=== PATIENT | male | born 1930 | race Caucasian/White ===

== ENCOUNTER 2016-10-29 09:41 | Emergency (ER) | payer MEDICARE ==
[~2016-10-29 09:41] MED LIST: 8 HOUR650 MG PO; ACIPHEX PO; ASAB PO; ASPERCREME TOP; ASPERCREME W/LIDOCAI TOP; C25 PO; CELEBREX2 PO; COREG3 PO; DIGITEK0.25 MG PO; EFFEX75 PO; FLOMAX4 PO; GENTEAL OPH; GLUCOPHAGE1000 MG PO; GLUCXL2.5 PO; KLONO1 PO; KLONOPIN WAF1 MG PO; KLOR-CON M2020 MEQ PO; L40 PO; LAMICTAL10 PO; LAN25 PO; MAXIMUM D3 PO; NEUR800 PO; PACERONE200 MG PO; PRAVACHOL40 MG PO; PRILO PO; PRIN20 PO; PRIN5 PO; ULTRAM50 PO; VITAMIN D OTC PO; VITAMINS/SUPPLEMENTS; XARELTO20 MG PO
[2016-10-29 11:03] LABS: BASOPHILS 0.4 %; BASOPHILS ABSOLUTE 0.02 10/3/uL (0.0-0.16); EOSINOPHILS 2.3 %; EOSINOPHILS ABSOLUTE 0.13 10/3/uL (0.0-0.53); HEMATOCRIT 42.3 % (40.0-51.0); HEMOGLOBIN 14.5 g/dL (13.6-17.8); IMMATURE GRANULOCYTES 0.2 %; IMMATURE GRANULOCYTES ABSOLUTE 0.01 10/3/uL (0.0-0.11); LYMPHOCYTES 13.6 %; LYMPHOCYTES ABSOLUTE 0.76 10/3/uL (0.67-4.30); MANUAL DIFF NO %; MEAN CORPUS HGB CONC 34.3 g/dL (32.0-36.0); MEAN CORPUSCULAR VOLUME 102.2 fL (80-100); MEAN PLATELET VOLUME 9.2 fL (9.2-13.0); MONOCYTES 9.7 %; MONOCYTES ABSOLUTE 0.54 10/3/uL (0.21-1.20); NEUTROPHILS 73.8 %; NEUTROPHILS ABSOLUTE 4.12 10/3/uL (2.02-8.40); PLATELET COUNT 208 10/3/uL (150-400); RBC DISTRIBUTION WIDTH 13.6 % (12.0-16.0); RED CELL COUNT 4.14 10/6/uL (4.7-6.1); WHITE BLOOD CELLS 5.6 10/3/uL (4.5-10.5)
[2016-10-29 11:10] LABS: INTERNATIONAL NORMAL RATI 1.8 UNITS (-); PARTIAL THROMBO TIME 38.8 SEC (22.5-37.2)
[2016-10-29 11:12] LABS: PROTIME (NOT ORD) 21.1 SEC (12.0-14.5)
[2016-10-29 11:19] LABS: BUN (BLOOD UREA NITROGEN) 23 MG/DL (6-23); CALCIUM, SERUM 8.9 MG/DL (8.5-10.4); CHEST PAIN PROFILE TAT 0 Hrs 20 Mins; CHLORIDE, SERUM 104 MMOL/L (96-112); CO2 (CARBON DIOXIDE) 29 MMOL/L (24-34); CREATININE 1.09 MG/DL (0.70-1.30); GFR AFRICAN AMERICAN 72 ML/MIN (>=60); GFR NON AFRICAN AMERICAN 62 ML/MIN (>=60); POTASSIUM, SERUM 4.3 MMOL/L (3.5-5.3); SODIUM, SERUM 138 MMOL/L (135-148); TROPONIN I 0.04 NG/ML (<0.05)
[2016-10-29 11:20] LABS: GLUCOSE, SERUM 158 MG/DL (60-99)
== END 2016-10-29 14:57 | disposition home or self-care (01) ==
LOC: ER 09:41
PROVIDERS: Physician Assistant
DX: I10 Essential (primary) hypertension (principal); I25.2 Old myocardial infarction; F41.9 Anxiety disorder, unspecified; E11.9 Type 2 diabetes mellitus without complications; Z88.0 Allergy status to penicillin; Z88.1 Allergy status to other antibiotic agents; Z88.8 Allergy status to other drugs, medicaments and biological substances; Z79.84 Long term (current) use of oral hypoglycemic drugs; Z79.899 Other long term (current) drug therapy
CPT/HCPCS: 71010; 80048; 83735; 84484; 85025; 85610; 85730; 93005; 96374; 99284; J0360